=== PATIENT | male | born 1995 | race Caucasian/White ===

== ENCOUNTER 2017-08-21 06:24 | Emergency (ER) | payer OTHER ==
[2017-08-21 07:49] LABS: BASOPHILS % (AUTO) 0 % (0-3); EOSINOPHILS % (AUTO) 0 % (0-9); HEMATOCRIT 43 % (39-53); MEAN CORPUSCULAR HGB CONC 36.2 gm/dl (32.0-36.0); MEAN CORPUSCULAR VOLUME 87 fL (80-100); MONOCYTES % (AUTO) 14.8 % (0-12); NEUTROPHILS % (AUTO) 72.4 % (37-80)
[2017-08-21 08:23] LABS: ALBUMIN 3.7 gm/dl (3.4-5.0); CALCIUM 8.6 mg/dl (8.5-10.1); POTASSIUM 4.2 mMol/L (3.5-5.1)
[2017-08-21 09:07] VITALS: BP 141/92; PULSE 88; RESP 16; TEMP 100.2; O2SAT 96
== END 2017-08-21 08:45 | disposition home or self-care (01) | DRG 153 ==
LOC: ED 06:24
DX: J06.9 Acute upper respiratory infection, unspecified (principal)
CPT/HCPCS: 36415; 71020; 80053; 85025; 87430; 87804; 99283